=== PATIENT | female | born 1940 | race Caucasian/White ===

== ENCOUNTER 2017-08-10 12:50 | Emergency (ER) | payer OTHER ==
[~2017-08-10] VITALS: Ht 157.5 cm; Wt 98.0 kg
[2017-08-10 12:53] VITALS: BP_SYST 132; BP_DIAS 18; BP_DIAS 84; PULSE 95; RESP 18; TEMP 98.2; O2SAT 95
--- NOTE | 2017-08-10 13:19 | PD ---
HPI Chief Complaint: Complaint Time Seen by Provider: 13:03 Travel History International Travel<30 days: No Contact w/Intl Traveler<30days: No Traveled to known affect area: No History of Present Illness HPI 76-year-old female complains of left lower quadrant abdominal pain and hematuria. Patient states that the symptom has been intermittent for the piece past 5 months. Patient states the pain in cramping pain localized to left low quadrant abdomen. Patient denies any pain radiation. Patient states the pain is sharper today. Patient states the pain started this morning. Patient denies any hematuria today. Patient has history of allergic continence. Patient denies any headache. Patient denies any chest pain or shortness of breath. Patient denies any dysuria or frequency. Patient denies any vaginal discharge or bleeding. Patient denies any back pain. PFSH Past Medical History Hx Anticoagulant Therapy: Yes (ASA 81MG DAILY) ?: Not Social History Tobacco Use: No Allergies-Medications (Allergen,Severity, Reaction): Coded Allergies: No Known Allergies (Verified Allergy, Unknown, 08/10/17) Reported Meds & Prescriptions Reported Meds & Active Scripts Active Bactrim DS (Sulfamethoxazole-Trimethoprim) 800-160 Mg Tab 1 Tab PO BID Reported Ferrous Sulfate 325 Mg (65 Mg Iron) Tablet 325 Mg PO DAILY Aspirin EC (Aspirin) 81 Mg Tabdr 81 Mg PO DAILY Levothyroxine (Levothyroxine Sodium) 50 Mcg Tab 50 Mcg PO DAILY Lisinopril-Hctz 10-12.5 Mg Tab 1 Tab PO DAILY Celebrex (Celecoxib) 200 Mg Cap 200 Mg PO DAILY Review of Systems General / Constitutional: No: Fever Eyes: No: Visual changes HENT: No: Headaches Cardiovascular: No: Chest Pain or Discomfort Respiratory: No: Shortness of Breath Gastrointestinal: Positive: Abdominal Pain Genitourinary: Positive: Hematuria, No: Dysuria Musculoskeletal: No: Pain Skin: No Rash Neurologic: No: Weakness Psychiatric: No: Depression Endocrine: No: Polydipsia Hematologic/Lymphatic: No: Easy Bruising Physical Exam Narrative GENERAL: Well-nourished, well-developed patient. SKIN: Focused skin assessment warm/dry. HEAD: Normocephalic. EYES: No scleral icterus. No injection or drainage. NECK: Supple, trachea midline. No JVD or lymphadenopathy. CARDIOVASCULAR: Regular rate and rhythm without murmurs, gallops, or rubs. RESPIRATORY: Breath sounds equal bilaterally. No accessory muscle use. GASTROINTESTINAL: Abdomen soft, nondistended. Mild tenderness on palpation left lower quadrant of the abdomen. No rebound tenderness. No mass. MUSCULOSKELETAL: No cyanosis, or edema. BACK: Nontender without obvious deformity. No CVA tenderness. Neurologic exam normal. Data Data Last Documented VS Vital Signs Date Time Temp Pulse Resp B/P (MAP) Pulse Ox O2 Delivery O2 Flow Rate FiO2 08/10/17 15:17 88 16 96 08/10/17 14:09 Room Air 08/10/17 12:53 98.2 132/84 (100) Orders Orders Complete Blood Count With Diff (08/10/17 13:11) Comprehensive Metabolic Panel (08/10/17 13:11) Prothrombin Time / Inr (Pt) (08/10/17 13:11) Act Partial Throm Time (Ptt) (08/10/17 13:11) Urinalysis - C+S If Indicated (08/10/17 13:11) Ct Abd/Pel W/O Iv Contrast (08/10/17 13:11) Iv Access Insert/Monitor (08/10/17 13:11) Ecg Monitoring (08/10/17 13:11) Oximetry (08/10/17 13:11) Urine Culture (08/10/17 14:20) Ed Discharge Order (08/10/17 14:47) Labs Laboratory Tests Test 08/10/17 13:30 08/10/17 14:20 White Blood Count 3.9 TH/MM3 Red Blood Count 4.46 MIL/MM3 Hemoglobin 12.4 GM/DL Hematocrit 37.7 % Mean Corpuscular Volume 84.4 FL Mean Corpuscular Hemoglobin 27.7 PG Mean Corpuscular Hemoglobin Concent 32.9 % Red Cell Distribution Width 16.1 % Platelet Count 66 TH/MM3 Mean Platelet Volume 9.1 FL Neutrophils (%) (Auto) 71.4 % Lymphocytes (%) (Auto) 18.7 % Monocytes (%) (Auto) 8.0 % Eosinophils (%) (Auto) 1.6 % Basophils (%) (Auto) 0.3 % Neutrophils # (Auto) 2.8 TH/MM3 Lymphocytes # (Auto) 0.7 TH/MM3 Monocytes # (Auto) 0.3 TH/MM3 Eosinophils # (Auto) 0.1 TH/MM3 Basophils # (Auto) 0.0 TH/MM3 CBC Comment AUTO DIFF Differential Comment AUTO DIFF CONFIRMED Prothrombin Time 11.2 SEC Prothromb Time International Ratio 1.1 RATIO Activated Partial Thromboplast Time 26.8 SEC Blood Urea Nitrogen 13 MG/DL Creatinine 0.72 MG/DL Random Glucose 152 MG/DL Total Protein 7.3 GM/DL Albumin 3.4 GM/DL Calcium Level 8.6 MG/DL Alkaline Phosphatase 144 U/L Aspartate Amino Transf (AST/SGOT) 40 U/L Alanine Aminotransferase (ALT/SGPT) 30 U/L Total Bilirubin 0.5 MG/DL Sodium Level 138 MEQ/L Potassium Level 3.8 MEQ/L Chloride Level 104 MEQ/L Carbon Dioxide Level 28.5 MEQ/L Anion Gap 6 MEQ/L Estimat Glomerular Filtration Rate 79 ML/MIN Urine Color YELLOW Urine Turbidity CLOUDY Urine pH 7.0 Urine Specific [place] 1.025 Urine Protein TRACE mg/dL Urine Glucose (UA) NEG mg/dL Urine Ketones NEG mg/dL Urine Occult Blood LARGE Urine Nitrite NEG Urine Bilirubin NEG Urine Leukocyte Esterase SMALL Urine RBC 25-49 /hpf Urine WBC 15-19 /hpf Urine WBC Clumps FEW Urine Squamous Epithelial Cells 6-8 /hpf Urine Amorphous Sediment MOD Urine Bacteria FEW /hpf Urine Mucus MOD /lpf Microscopic Urinalysis Comment CULTURE INDICATED MDM Medical Decision Making Medical Screen Exam Complete: Yes Emergency Medical Condition: Yes Interpretation(s) Last Impressions Abdomen/Pelvis CT 08/10/17 1311 Signed Impressions: Service Date/Time: Thursday, August 10, 2017 13:34 - CONCLUSION: 1. Moderate splenomegaly. 2. There are some scattered retroperitoneal nodes seen in the para-aortic dale chain predominantly right-sided the largest measures 1.4 cm and is best visualized on image #63 at 149. 3. Multiple renal stones on the left with a 1.4 cm stone in the collecting system and a staghorn calculus involving the lower pole the left kidney. 4. Multiple calcified gallstones. 5. Sizable umbilical hernia. Pedro Pablo Sheikh MD 1437 PM. CBC WBC 3.9. Platelet 66. 74 neutrophil. AST 40. Alkaline phosphatase 144. Differential Diagnosis Differential diagnosis including nephrolithiasis, pyelonephritis, UTI, colitis. Narrative Course 76-year-old female with intermittent left low quadrant abdominal pain and hematuria. Diagnosis Primary Impression: UTI (urinary tract infection) Qualified Codes: N30.01 - Acute cystitis with hematuria Additional Impressions: Nephrolithiasis Cholelithiasis Qualified Codes: K80.20 - Calculus of gallbladder without cholecystitis without obstruction Lymphadenopathy, abdominal Patient Instructions: General Instructions Additional Instructions: Follow-up with personal physician and urologist. Return if worse. Patient was given report of the CT abdomen to follow-up with local physician. Med/Other Pt SpecificInfo: Prescription(s) given Scripts Sulfamethoxazole-Trimethoprim (Bactrim DS) 800-160 Mg Tab 1 TAB PO BID for Infection, #14 TAB 0 Refills Prov: Juwan Silverio MD 08/10/17 Disposition: 01 DISCHARGE HOME Condition: Stable Juwan Silverio MD Aug 10, 2017 13:19
[2017-08-10] MEDS ORDERED: CELE200C PO (13:22)
[2017-08-10] MEDS ORDERED: LISI10TA PO (13:22)
[2017-08-10] MEDS ORDERED: FERR325T18 PO (13:22)
[2017-08-10] MEDS ORDERED: ASPI81TA23 PO (13:22)
[2017-08-10] MEDS ORDERED: LEVO50TA4 PO (13:22)
[2017-08-10 13:55] LABS: CHLORIDE 104 MEQ/L (98-107); SODIUM (NA) 138 MEQ/L (136-145)
--- NOTE | 2017-08-10 13:56 | RADRPT ---
EXAM DATE/TIME: 08/10/2017 13:34 [facility] COMPARISON: No previous studies available for comparison. INDICATIONS : Intermittent left lower quadrant pain and hematuria x 5 months, worse today. ORAL CONTRAST: No oral contrast ingested. RADIATION DOSE: 27.84 CTDIvol (mGy) ; Patient body habitus MEDICAL HISTORY : Gastroesophageal reflux disease. Hypertension. SURGICAL HISTORY : None. ENCOUNTER: Initial ACUITY: 4 - 6 months PAIN SCALE: 2/10 LOCATION: Left lower quadrant TECHNIQUE: Volumetric scanning of the abdomen and pelvis was performed. Using automated exposure control and ad justment of the mA and/or kV according to patient size, radiation dose was kept as low as reasonably achievable to obtain optimal diagnostic quality images. DICOM format image data is available electro nically for review and comparison. FINDINGS: Right kidney/ureter: The right kidney is normal in size. There is no hydronephrosis. The right ureter is followed througho ut its course and is normal in caliber. Left kidney/ureter: The examination demonstrates multiple stones within the left kidney. There is a 1.4 cm stone in the r enal pelvis as well as a staghorn calculus involving the lower pole calyces. The left ureter is follo wed throughout its course and is normal in caliber. The limited portion of lung bases visualized is clear. There are multiple calcified gallstones within the gallbladder. There is moderate splenomegaly. There are some scattered, mildly enlarged retroperi toneal lymph nodes identified. There are nodes measuring up to 1.4 cm in size. The nodes are indeterm inate by CT imaging. PET imaging could be performed for more definitive assessment. The visualized loops of small and large bowel are unremarkable. Note is made of a sizable umbilical h ernia. There is omental fat herniated into the defect. No findings to indicate bowel obstruction are seen. No significant iliac or inguinal adenopathy is present. CONCLUSION: 1. Moderate splenomegaly. 2. There are some scattered retroperitoneal nodes seen in the para-aortic dale chain predominantly r ight-sided the largest measures 1.4 cm and is best visualized on image #63 at 149. 3. Multiple renal stones on the left with a 1.4 cm stone in the collecting system and a staghorn calc ulus involving the lower pole the left kidney. 4. Multiple calcified gallstones. 5. Sizable umbilical hernia. Pedro Pablo Sheikh MD on August 10, 2017 at 13:49 Board Certified Radiologist. This report was verified electronically.
[2017-08-10 13:58] LABS: CALCIUM 8.6 MG/DL (8.5-10.1)
[2017-08-10 13:59] LABS: ALBUMIN 3.4 GM/DL (3.4-5.0); BICARBONATE 28.5 MEQ/L (21.0-32.0); BLOOD UREA NITROGEN 13 MG/DL (7-18); GLUCOSE,RANDOM 152 MG/DL (74-106); INTERNATIONAL NORMALIZED RATIO 1.1 RATIO; PROTHROMBIN TIME - PATIENT 11.2 SEC (9.8-11.6)
[2017-08-10 14:01] LABS: AUTOMATED NEUTROPHIL # 2.8 TH/MM3 (1.8-7.7); BASOPHIL % 0.3 % (0.0-2.0); EOSINOPHIL # 0.1 TH/MM3 (0-0.4); EOSINOPHIL % 1.6 % (0.0-4.0); HEMATOCRIT 37.7 % (35.0-46.0); HEMOGLOBIN 12.4 GM/DL (11.6-15.3); LYMPH % 18.7 % (9.0-44.0); LYMPHOCYTE # 0.7 TH/MM3 (1.0-4.8); MEAN CELL VOLUME 84.4 FL (80.0-100.0); MEAN CORPUSCULAR HEMOGLOBIN 27.7 PG (27.0-34.0); MEAN CORPUSCULAR HGB CONC 32.9 % (32.0-36.0); MEAN PLATELET VOLUME 9.1 FL (7.0-11.0); MONOCYTE # 0.3 TH/MM3 (0-0.9); NEUT % 71.4 % (16.0-70.0); PLATELET COUNT 66 TH/MM3 (150-450); RED BLOOD COUNT 4.46 MIL/MM3 (4.00-5.30); RED CELL DISTRIBUTION WIDTH 16.1 % (11.6-17.2); WHITE BLOOD COUNT 3.9 TH/MM3 (4.0-11.0)
[2017-08-10 14:02] LABS: ALT (GPT) 30 U/L (10-53); AST (GOT) 40 U/L (15-37); CREATININE 0.72 MG/DL (0.50-1.00); GLOMERULAR FILTRATION RATE 79 ML/MIN (>89)
[2017-08-10 14:03] LABS: TOTAL BILIRUBIN ADULT 0.5 MG/DL (0.2-1.0)
[2017-08-10 14:04] LABS: TOTAL PROTEIN 7.3 GM/DL (6.4-8.2)
[2017-08-10 14:05] LABS: ALKALINE PHOSPHATASE 144 U/L (45-117)
[2017-08-10 14:09] VITALS: O2SAT 95
[2017-08-10 14:34] LABS: BILIRUBIN, URINE NEG (NEG); BLOOD, URINE LARGE (NEG); GLUCOSE,URINE NEG (NEG); KETONE, URINE NEG (NEG); NITRITE,URINE NEG (NEG); URINE LEUKOCYTE ESTERASE SMALL (NEG)
[2017-08-10 14:38] LABS: URINE COLOR YELLOW (YELLW/STRAW)
[2017-08-10 14:39] LABS: BACTERIA, URINE FEW /hpf; MUCUS URINE MOD /lpf (OCC); WBC, URINE 15-19 /hpf (0-5); WHITE BLOOD CELL CLUMPS FEW
[2017-08-10 14:40] LABS: AMORPHOUS SEDIMENT, URINE MOD
[2017-08-10] MEDS ORDERED: BACT800T5 PO (14:46)
== END 2017-08-10 15:21 | disposition home or self-care (01) ==
LOC: PHED 12:50
DX: N30.01 Acute cystitis with hematuria (principal); N20.0 Calculus of kidney; K80.20 Calculus of gallbladder without cholecystitis without obstruction; R59.1 Generalized enlarged lymph nodes; Z79.82 Long term (current) use of aspirin
CPT/HCPCS: 74176; 80053; 81001; 85025; 85610; 85730; 87086; 99283